=== PATIENT | male | born 1970 | race Two or more races ===

== ENCOUNTER 2019-11-01 18:19 | Emergency (ER) | payer BC ==
[2019-11-01] MEDS ORDERED: RINGERS SOLUTION,LACTATED 1,000 ML IV ONE (20:01)
--- NOTE | 2019-11-01 20:05 | ER Document Report ---
ED Medical Screen (RME) - General Chief Complaint: Low Blood Sugar Stated Complaint: CRAMPING/HYPOGLACEMIA Time Seen by Provider: 11/01/19 20:01 Primary Care Provider: WILBUR COLON [Primary Care Provider] - Follow up as needed Mode of Arrival: Medic Information source: Patient, Relative Notes: HPI; 29-year-old male presents to the emergency room via EMS complaining of cramping of his fingers and his body that started earlier today. 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 Complaining of some intermittent chest pain which he describes as tightness. Denies nausea, vomiting. Was diaphoretic on EMS arrival. Patient was given 750 mls of LR prior to arrival. Patient continues to complain of general body cramping and chest tightness. PE: Alert and oriented x3. Lungs: Clear to auscultation without rales, rhonchi, wheezes. Heart: Regular rate and rhythm without murmurs, rubs, gallops. I have greeted and performed a rapid initial assessment of this patient. A comprehensive ED assessment and evaluation of the patient, analysis of test results and completion of the medical decision making process will be conducted by additional ED providers. I have specifically instructed the patient or family members with the patient to immediately return to any nursing staff should anything change in the patient's condition or with their chief complaint. TRAVEL OUTSIDE OF THE [place] IN LAST 30 DAYS: No - Related Data Allergies/Adverse Reactions: pioglitazone HCl [From Actos] Allergy (Verified 08/15/11 03:26) Past Medical History Endocrine Medical History: Reports: Hx Diabetes Mellitus Type 2 - Immunizations Hx Diphtheria, Pertussis, Tetanus Vaccination: Yes - 07/2011 Physical Exam - Vital signs Vitals: Temp Pulse Resp BP Pulse Ox 98.1 F 98 18 130/72 H 99 11/01/19 18:47 11/01/19 18:47 11/01/19 18:47 11/01/19 18:47 11/01/19 18:47 Course - Vital Signs Vital signs: Temp Pulse Resp BP Pulse Ox 98.1 F 98 18 130/72 H 99 11/01/19 18:47 11/01/19 18:47 11/01/19 18:47 11/01/19 18:47 11/01/19 18:47 Doctor's Discharge - Discharge Referrals: LOCALMD,NO [Primary Care Provider] - Follow up as needed
--- NOTE | 2019-11-01 20:41 | RADIOLOGY REPORT (SQ) ---
EXAM DESCRIPTION: [facility]: XR CHEST 2 VIEWS Views: 2 CLINICAL HISTORY: 49 years Male; chest pain; COMPARISON: None. FINDINGS: Lungs: Lungs are clear, with no focal infiltrate, pneumothorax, or pleural effusion. Mediastinum: Mediastinum is within normal limits for this positioning. Bones: Bony structures are unremarkable. IMPRESSION: 1. No acute cardiothoracic abnormality.
[2019-11-01 20:47] LABS: ABSOLUTE LYMPHOCYTES (AUTO) 1.8 10^3/uL (0.5-4.7); ABSOLUTE MONOCYTES (AUTO) 0.7 10^3/uL (0.1-1.4); ABSOLUTE NEUT (AUTO) 9.9 10^3/uL (1.7-8.2); BASOPHILS % (AUTO) 0.1 % (0-2); EOSINOPHILS % (AUTO) 0.3 % (0-6); HEMOGLOBIN 16.4 g/dL (13.5-17.0); LYMPHOCYTES % (AUTO) 14.6 % (13-45); MEAN CORPUSCULAR HEMOGLOBIN 30.3 pg (27.0-33.4); MEAN CORPUSCULAR HGB CONC 34.2 g/dL (32.0-36.0); MEAN CORPUSCULAR VOLUME 89 fl (80-97); MONOCYTES % (AUTO) 5.6 % (3-13); PLATELET COUNT 231 10^3/uL (150-450); RED BLOOD COUNT 5.41 10^6/uL (4.35-5.55); RED CELL DISTRIBUTION WIDTH 13.2 % (11.5-14.0); SEGMENTED NEUTROPHILS % (AUTO) 79.4 % (42-78); TOTAL CELLS COUNTED % (AUTO) 100 %; WHITE BLOOD COUNT 12.5 10^3/uL (4.0-10.5)
[2019-11-01 21:03] LABS: ALBUMIN 5.3 g/dL (3.5-5.0); ALKALINE PHOSPHATASE 104 U/L (38-126); ANION GAP 15 (5-19); ASPARTATE AMINO TRANSFERASE 27 U/L (17-59); BILIRUBIN,TOTAL 0.6 mg/dL (0.2-1.3); BLOOD UREA NITROGEN 32 mg/dL (7-20); CALCIUM 10.3 mg/dL (8.4-10.2); CARBON DIOXIDE 21 mmol/L (22-30); CHLORIDE 99 mmol/L (98-107); CREATINE KINASE 156 U/L (55-170); GLUCOSE 212 mg/dL (75-110); POTASSIUM 4.6 mmol/L (3.6-5.0); TOTAL PROTEIN 8.8 g/dL (6.3-8.2)
[2019-11-01 21:14] LABS: CREATINE KINASE MB 1.88 ng/mL (<4.55); TROPONIN I 0.013 ng/mL
[2019-11-01] MEDS ORDERED: CEFTRIAXONE 1 GM/D5W RTU 1 GM/50 ML RTUPB IV ONE (21:20)
[2019-11-01] MEDS ORDERED: RINGERS LACTATED IV ONE (21:20)
[2019-11-01 22:03] LABS: INTERNATIONAL RATION (INR) 0.98; PROTHROMBIN TIME 13.2 SEC (11.4-15.4)
[2019-11-01] MEDS ORDERED: KETOROLAC TROMETHAMINE INJ/PF 30 MG/1 ML SDV IV ONE (23:06)
--- NOTE | 2019-11-01 23:59 | ER Document Report ---
Entered by NAVDEEP SCHMITT SCRIBE 11/01/19 2711 Acting as scribe for:JEFFREY CHAVIS IV, MD ED General - General Chief Complaint: Tremor Stated Complaint: CRAMPING/HYPOGLACEMIA Time Seen by Provider: 11/01/19 20:01 Primary Care Provider: WILBUR COLON [NO LOCAL MD] - Follow up as needed Mode of Arrival: Medic Information source: Patient Notes: This 49 year old male patient with a history of diabetes brought in by EMS from home presents to the ED today with complaints of generalized body aches and cramping that started this afternoon. 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 He reports becoming diaphoretic, but denies nausea, vomiting, or cough. Patient received approximately 750 ml LR en route via EMS. Denies any other complaints. TRAVEL OUTSIDE OF THE [place] IN LAST 30 DAYS: No - Related Data Allergies/Adverse Reactions: pioglitazone HCl [From BURLESQUICEOUS] Allergy (Verified 08/15/11 03:26) Home Medications: metformin, glibiride, jaurnice, osembic,ibuprofen., vitamins b12 Past Medical History - General Information source: Patient, Relative - Social History Smoking Status: Never Smoker Cigarette use (# per day): No Chew tobacco use (# tins/day): No Smoking Education Provided: No Frequency of alcohol use: one a wk Lives with: Family Family History: Reviewed & Not Pertinent Patient has suicidal ideation: No Patient has homicidal ideation: No Endocrine Medical History: Reports: Hx Diabetes Mellitus Type 2 - Immunizations Hx Diphtheria, Pertussis, Tetanus Vaccination: Yes - 07/2011 Review of Systems - Review of Systems Constitutional: See HPI, Diaphoresis EENT: No symptoms reported Cardiovascular: No symptoms reported Respiratory: See HPI. denies: Cough Gastrointestinal: See HPI, Poor fluid intake. denies: Nausea, Vomiting Genitourinary: No symptoms reported Male Genitourinary: No symptoms reported Musculoskeletal: See HPI, Muscle pain Skin: No symptoms reported Hematologic/Lymphatic: No symptoms reported Neurological/Psychological: No symptoms reported -: Yes All other systems reviewed and negative Physical Exam - Vital signs Vitals: Temp Pulse Resp BP Pulse Ox 98.1 F 98 18 130/72 H 99 11/01/19 18:47 11/01/19 18:47 11/01/19 18:47 11/01/19 18:47 11/01/19 18:47 - General General appearance: Alert In distress: None - HEENT Head: Normocephalic, Atraumatic Eyes: Normal Pupils: PERRL - Respiratory Respiratory status: No respiratory distress Chest status: Nontender Breath sounds: Normal Chest palpation: Normal - Cardiovascular Rhythm: Regular Heart sounds: Normal auscultation Murmur: No Friction rub: No Gallop: None auscultated - Abdominal Inspection: Normal Distension: No distension Bowel sounds: Normal Tenderness: Nontender - Abdomen soft Organomegaly: No organomegaly - Back Back: Normal, Nontender - Extremities General upper extremity: Normal inspection General lower extremity: Normal inspection - Neurological Neuro grossly intact: Yes Orientation: AAOx4 Sanchez Coma Scale Eye Opening: Spontaneous Sanchez Coma Scale Verbal: Oriented Toutle Coma Scale Motor: Obeys Commands Sanchez Coma Scale Total: 15 - Psychological Associated symptoms: Normal affect, Normal mood - Skin Skin Temperature: Warm Skin Moisture: Dry Skin Color: Normal Course - Re-evaluation Re-evalutation: 11/02/19 01:54 Results of ED MSE discussed with patient and patient's family member. All questions were answered prior to discharge. Emergency signs and symptoms, reasons to return to the emergency department discussed with patient and patient's family member. - Vital Signs Vital signs: Temp Pulse Resp BP Pulse Ox 98.1 F 98 18 112/77 97 11/01/19 18:47 11/01/19 18:47 11/02/19 00:01 11/02/19 00:01 11/02/19 00:01 - Laboratory Result Diagrams: 11/01/19 20:25 11/01/19 20:25 Laboratory results interpreted by me: 11/01/19 11/01/19 11/01/19 20:25 20:25 20:25 WBC 12.5 H Absolute Neuts (auto) 9.9 H Seg Neutrophils % 79.4 H Sodium 135.2 L Carbon Dioxide 21 L BUN 32 H Glucose 212 H Lactic Acid 2.9 H Calcium 10.3 H Total Protein 8.8 H Albumin 5.3 H - Diagnostic Test Radiology reviewed: Reports reviewed - EKG Interpretation by Me Additional EKG results interpreted by me: 11/02/19 01:55 EKG obtained on 11/01/2019 at 2251 hrs. was interpreted by this . Findings normal sinus rhythm, rate 74, normal axis, P waves preceding QRS complexes, QRS complexes appear narrow, there are no obvious patterns of ST segment elevation or depression present to suggest acute myocardial ischemia or infarction. Impression: Normal sinus rhythm with nonspecific ST segments. Discharge - Discharge Clinical Impression: Dehydration Heat exhaustion Qualifiers: Encounter type: initial encounter Qualified Code(s): T67.5XXA - Heat exhaustion, unspecified, initial encounter Condition: Stable Disposition: HOME, SELF-CARE Additional Instructions: Return to the Emergency Department without delay if any worse. HOME CARE INSTRUCTIONS & INFORMATION: Thank you for choosing us for your medical needs. We hope you're satisfied with the care you received. After you leave, you must properly care for your problem and, at the same time, observe its progress. Any condition can change. Some illnesses can change rapidly over hours or days. If your condition worsens, return to the Emergency Department or see your physician promptly. ABOUT YOUR X-RAYS AND EKG'S: If you had an EKG or X-rays taken, they have been read by the Emergency Physician. The X-rays and EKG's will also be read by a Radiologist or Store Administrator within 24 hours. If discrepancies are noted, you will be notified by telephone. Please be certain the ED has a correct telephone number & address where you can be reached. Also, realize that some fractures or abnormalities do not show up on initial X-rays. If your symptoms continue, see your physician. ABOUT YOUR LABORATORY TEST: If you had laboratory tests, the results have been reviewed by the Emergency Physician. Some test results (for example cultures) may not be available for several days. You will be contacted if any test result shows you need additional treatment. Please be certain the ED has a correct telephone number and address where you can be reached. ABOUT YOUR MEDICATIONS: You will receive instructions on how to take your medicine on the prescription label you receive. Additional information may be provided by the Pharmacy. If you have questions afterwards, call the ED for clarification or further instructions. Some prescribed medications may cause drowsiness. Do not perform tasks such as driving a car or operating machinery without consulting your Pharmacist. If you feel you need a refill of pain medication, your condition will need re-evaluation. Please do not call for a refill of any medication. ABOUT YOUR SIGNATURE: Signature of this document acknowledges to followin. Understanding that you received emergency treatment and that you may be released before al medical problems are known or treated. Please be certain the ED has a correct phone number & address where you can be reached. 2. Acknowledgement that you will arrange for follow-up care as recommended. 3. Authorization for the Emergency Physician to provide information to your follow-up Physician in order to maximize your care. AT ANY TIME, IF YOUR SYMPTOMS CHANGE SIGNIFICANTLY OR WORSEN OR YOU DEVELOP NEW SYMPTOMS, RETURN TO THE EMERGENCY DEPARTMENT IMMEDIATELY FOR RE-EVALUATION. OUR GOAL IS TO PROVIDE EXCELLENT MEDICAL CARE! WE HOPE THAT WE HAVE MET YOUR EXPECTATIONS DURING YOUR EMERGENCY DEPARTMENT VISIT AND THAT YOU FEEL YOU HAVE RECEIVED EXCELLENT CARE! Dehydration Dehydration can result from vomiting or diarrhea, fever, or decreased intake of fluids. If severe, hospitalization and intravenous fluids may be required. Most cases are treated at home with fluids by mouth. For the next 24 hours, drink lots of clear fluids. In mild cases, this can be soda pop or sports drinks. For more severe dehydration, the doctor may recommend special fluids such as Pedialyte or Lytren. Try to get three liters (3 quarts) of fluid per day. If vomiting occurs, continue to drink the fluids f requently (every 15 to 20 minutes), but in small amounts (one or two ounces). Depending on the type of dehydration, the doctor may prescribe antinausea medicine or potassium replacements. Call the doctor or return for re-examination if you become progressively weak, vomit repeatedly, or have other new symptoms. Heat Exhaustion You have had an episode of heat exhaustion. The body overheats when sweating fails to keep the temperature down due to high humidity, exercise, or dehydration. Typical symptoms may include muscle cramps, dizziness, nausea, and even chilling. You should rest and drink plenty of fluids. Do not resume any activities until you feel fully back to normal. To prevent a recurrence, avoid working in the heat. Always drink plenty of fluids when the weather is hot, particularly if you will be exercising. Use extra caution when the humidity is high. If you feel symptoms of heat illness, douse yourself with cold water and rest in the shade. Call the doctor if you develop confusion, repeated vomiting, severe headach e, severe muscle spasms, fever, chest pain or shortness of breath. Referrals: LOCALFL,NO [NO LOCAL MD] - Follow up as needed FREDERICK BARRETT MD [HONORARY] - Follow up as needed I personally performed the services described in the documentation, reviewed and edited the documentation which was dictated to the scribe in my presence, and it accurately records my words and actions.
[2019-11-02] MEDS ORDERED: CYCLOBENZAPRINE HCL 10 MG TABLET PO ONE (02:13)
[2019-11-02 02:41] VITALS: BP 108/76
--- NOTE | 2019-11-02 14:13 | EKG REPORT ---
SEVERITY:- NORMAL ECG - SINUS RHYTHM : Confirmed by: Stu Laughlin 02-Nov-2019 14:13:01
== END 2019-11-02 02:25 | disposition home or self-care (01) ==
LOC: ER 18:19
DX: T67.5XXA Heat exhaustion, unspecified, initial encounter (principal); X30.XXXA Exposure to excessive natural heat, initial encounter; Y92.61 Building [any] under construction as the place of occurrence of the external cause; Y93.H3 Activity, building and construction; Y99.0 Civilian activity done for income or pay; E86.0 Dehydration; R25.1 Tremor, unspecified; E11.649 Type 2 diabetes mellitus with hypoglycemia without coma; M79.10 Myalgia, unspecified site; R61 Generalized hyperhidrosis; Z88.8 Allergy status to other drugs, medicaments and biological substances; Z79.899 Other long term (current) drug therapy; Z79.84 Long term (current) use of oral hypoglycemic drugs
CPT/HCPCS: 93005; 99285; 96361; 96374; 36415; 82553; 82550; 83605; 85025; 85610; 80053; 84484; 71046; 93010; J1885; J7120